=== PATIENT | female | born 1975 | race Two or more races ===

== ENCOUNTER 2019-06-11 11:45 | Emergency (ER) | payer SELFPAY ==
[~2019-06-11] VITALS: Ht 162.6 cm; Wt 65.0 kg
[2019-06-11 11:51] VITALS: BP 122/86
== END 2019-06-11 15:13 | disposition left against medical advice (07) ==
LOC: ER 12:03
DX: M25.532 Pain in left wrist (principal); Z53.21 Procedure and treatment not carried out due to patient leaving prior to being seen by health care provider